=== PATIENT | male | born 1990 | race Two or more races ===

== ENCOUNTER 2023-07-25 17:09 | Emergency (ER) | payer BC ==
[~2023-07-25] VITALS: Ht 177.8 cm; Wt 84.0 kg
[2023-07-25 17:18] VITALS: BP 122/86; PULSE 103; RESP 18; O2SAT 95
[2023-07-25] MEDS ORDERED: IBUP-1455 PO (23:27)
[2023-07-25] MEDS ORDERED: CEPH500C PO (23:27)
[2023-07-25] MEDS ORDERED: MUPI2OIN2 EX (23:27)
[2023-07-25] MEDS: TETANUS-DIPTH-ACEL PERTUSSIS 0.5ML SYR Tdap IM ONE (23:48)
[2023-07-25] MEDS: IBUPROFEN 800 MG TAB PO ONE (23:49)
[2023-07-25] MEDS: NEOMYCIN-BACITRACIN-POLYM UNITDOSE PKG TOP OINT TOP ONE (23:49)
== END 2023-07-26 00:02 | disposition home or self-care (01) ==
LOC: ER 17:09
DX: S61.411A Laceration without foreign body of right hand, initial encounter (principal); W18.39XA Other fall on same level, initial encounter; Y93.I9 Activity, other involving external motion; Y92.89 Other specified places as the place of occurrence of the external cause; Y99.8 Other external cause status
CPT/HCPCS: 12002; 73110; 73130; 90471; 90715